=== PATIENT | female | born 1980 | race African-American/Black ===

== ENCOUNTER 2021-02-24 01:58 | Emergency (ER) | payer MEDICAID, MEDICARE, OTHER ==
[~2021-02-24] VITALS: Ht 165.1 cm; Wt 119.0 kg
[2021-02-24] MEDS ORDERED: MAGNESIUM/ALUMINUM HYDROXIDE/SIMETHICONE 30ML UDC PO ONE (04:45)
[2021-02-24] MEDS ORDERED: OMEPRAZOLE 20MG CAPSULE EXTENDED RELEASE PO ONE (04:45)
[2021-02-24] MEDS ORDERED: ONDANSETRON 4MG ODT PO ONE (04:45)
[2021-02-24] MEDS ORDERED: OMEP20CA14 MT (05:32)
[2021-02-24] MEDS ORDERED: AMLO2.5T45 MT (05:33)
[2021-02-24] MEDS ORDERED: LOSA50TA41 MT (05:35)
[2021-02-24 05:57] VITALS: BP 162/94
== END 2021-02-24 06:01 | disposition home or self-care (01) ==
LOC: ER 01:58
DX: K21.9 Gastro-esophageal reflux disease without esophagitis (principal); F31.9 Bipolar disorder, unspecified; I10 Essential (primary) hypertension
CPT/HCPCS: 99284; Q0162

== ENCOUNTER 2022-03-02 19:37 | Emergency (ER) | payer MEDICAID ==
[~2022-03-02] VITALS: Ht 165.1 cm; Wt 116.1 kg
[~2022-03-02 19:37] MED LIST: AMLO2.5T45 MT; LOSA50TA41 MT; OMEP20CA14 MT
[2022-03-02 20:13] VITALS: BP 160/113
[2022-03-02] MEDS ORDERED: IBUP-2029 MT (22:27)
[2022-03-02] MEDS ORDERED: CYCL10TA21 MT (22:27)
== END 2022-03-02 23:00 | disposition home or self-care (01) ==
LOC: ER 21:29
DX: M54.2 Cervicalgia (principal); M54.50 Low back pain, unspecified; I10 Essential (primary) hypertension; V49.49XA Driver injured in collision with other motor vehicles in traffic accident, initial encounter; Y93.89 Activity, other specified; Y92.89 Other specified places as the place of occurrence of the external cause; Y99.8 Other external cause status; F31.9 Bipolar disorder, unspecified
CPT/HCPCS: 99283

== ENCOUNTER 2023-11-13 15:59 | Emergency (ER) | payer MEDICAID, OTHER ==
[~2023-11-13] VITALS: Ht 170.2 cm; Wt 95.0 kg
[~2023-11-13 15:59] MED LIST changes: +CYCL10TA21 MT; +IBUP-2029 MT
[2023-11-13 16:27] VITALS: BP_DIAS 100; O2SAT 98
[2023-11-13 17:12] LABS: CLARITY URINE CLEAR (CLEAR); COLOR URINE YELLOW (YELLOW); GLUCOSE URINE NEGATIVE (NEGATIVE); KETONES URINE TRACE (NEGATIVE); LEUKOCYTE ESTERASE URINE TRACE (NEGATIVE); NITRITE URINE NEGATIVE (NEGATIVE); OCCULT BLOOD URINE NEGATIVE (NEGATIVE); PROTEIN URINE TRACE (NEGATIVE); SPECIFIC GRAVITY URINE 1.033 (1.005-1.030)
[2023-11-13 17:29] LABS: BACTERIA URINE 2+; RBC URINE 0-2 /hpf (0-2); SQUAMOUS EPITHELIAL CELL URINE 1+ /lpf (RARE/1+); WBC URINE 0-2 /hpf (0-2)
[2023-11-13] MEDS ORDERED: LIDOCAINE 5% PATCH TOP SCH (19:45)
[2023-11-13] MEDS: HYDROCODONE/ACETAMINOPHEN 5/325MG TABLET PO ONE (20:25)
[2023-11-13] MEDS: KETOROLAC 30MG/ML VIAL IM ONE (20:25)
[2023-11-13] MEDS: LIDOCAINE 5% PATCH TOP SCH (20:26)
[2023-11-13] MEDS ORDERED: IBUP-2028 MT (20:35)
[2023-11-13] MEDS ORDERED: LIDO1ADH23 TP (20:35)
[2023-11-13] MEDS ORDERED: METH-653 MT (20:35)
[2023-11-13 21:01] VITALS: BP_SYST 135; PULSE 98; RESP 18; TEMP 97.7
== END 2023-11-13 20:57 | disposition home or self-care (01) ==
LOC: ER 15:59
DX: M54.50 Low back pain, unspecified (principal); F31.9 Bipolar disorder, unspecified; I10 Essential (primary) hypertension; Z79.899 Other long term (current) drug therapy; V49.59XA Passenger injured in collision with other motor vehicles in traffic accident, initial encounter; Y93.89 Activity, other specified; Y92.89 Other specified places as the place of occurrence of the external cause; Y99.8 Other external cause status
CPT/HCPCS: 81003; 81025; 72070; 72100; 96372; 99284; J1885; Z7610